=== PATIENT | male | born 1945 | race Caucasian/White ===

== ENCOUNTER 2021-10-05 16:31 | Emergency (ER) | payer OTHER ==
[~2021-10-05] VITALS: Ht 182.9 cm; Wt 102.1 kg
[~2021-10-05 16:31] MED LIST: AMOCLA875 PO
[2021-10-05] MEDS ORDERED: ONDA4ODT MM (17:42)
[2021-10-05] MEDS ORDERED: ALBU90OI INH (17:42)
[2021-10-05] MEDS ORDERED: Zithromax250 MG PO (17:42)
[2021-10-05] MEDS ORDERED: METPRE4DP PO (17:42)
== END 2021-10-05 18:27 | disposition home or self-care (01) ==
LOC: ER 16:31
DX: J06.9 Acute upper respiratory infection, unspecified (principal)
CPT/HCPCS: 71046; 99283-25